=== PATIENT | male | born 1965 | race Caucasian/White ===

== ENCOUNTER 2018-07-04 12:25 | Inpatient (IN) | payer MEDICAID, OTHER ==
[~2018-07-04] VITALS: Ht 193 cm; Wt 76.7 kg
[2018-07-04] MEDS ORDERED: DIVA-78 PO (14:13)
[2018-07-04] MEDS ORDERED: ALBU8HFA IH (14:13)
[2018-07-04] MEDS ORDERED: PRAZ2 PO (14:13)
[2018-07-04] MEDS ORDERED: QUET50TA PO (14:13)
[2018-07-04] MEDS ORDERED: OLAN10TA6 PO (14:13)
[2018-07-04 14:36] LABS: AMPHET/METH SCREEN,URINE NEGATIVE (NEGATIVE); BARBITURATE SCREEN, URINE NEGATIVE (NEGATIVE); BENZODIAZEPINES SCREEN,URINE NEGATIVE (NEGATIVE); CANNABINOID SCREEN,URINE NEGATIVE (NEGATIVE); COCAINE SCREEN,URINE NEGATIVE (NEGATIVE); METHADONE SCREEN, URINE NEGATIVE (NEGATIVE); OPIATE SCREEN,URINE NEGATIVE (NEGATIVE)
[2018-07-04 14:39] LABS: PHENCYCLIDINE SCREEN,URINE NEGATIVE (NEGATIVE)
[2018-07-04 14:47] LABS: BASOPHILS % (AUTO) 0.3 % (0.0-2.0); EOSINOPHILS % (AUTO) 5.7 % (1.0-6.0); HEMATOCRIT 38.2 % (41-53); HEMOGLOBIN 12.6 g/dL (13.5-17.5); LYMPHOCYTES # (AUTO) 2.9 K/uL (1.0-4.8); LYMPHOCYTES % (AUTO) 43.8 % (22.0-44.0); MEAN CORPUSCULAR HEMOGLOBIN 31.2 pg (26.0-34.0); MEAN CORPUSCULAR HGB CONC 32.9 G/dL (31.0-37.0); MEAN CORPUSCULAR VOLUME 95 fL (80-100); MONOCYTES # (AUTO) 0.6 K/uL (0.1-1.0); MONOCYTES % (AUTO) 9.1 % (2.0-9.0); NEUTROPHILS # (AUTO) 2.7 K/uL (1.8-7.7); NEUTROPHILS % (AUTO) 41.1 % (40.0-70.0); PLATELET COUNT (AUTO) 370 K/uL (150-450); RED BLOOD CELL COUNT(AUTO) 4.02 MIL/uL (4.50-5.90); RED CELL DISTRIBUTION WIDTH 14.5 % (11.5-14.5)
[2018-07-04 14:55] LABS: ANION GAP 5 mmol/L (8-16); CALCIUM, TOTAL 8.8 mg/dL (8.8-10.5); CARBON DIOXIDE 28 mmol/L (22-29); CHLORIDE 104 mmol/L (98-107); CREATININE 0.61 mg/dL (0.60-1.30); GLOMERULAR FILTR. RATE CALC > 60 mL/min (>60); GLUCOSE,RANDOM 92 mg/dL (70-110); POTASSIUM 4.3 mmol/L (3.5-5.1); SODIUM SERUM 137 mmol/L (136-145); UREA NITROGEN, BLOOD 13 mg/dL (7-18)
[2018-07-04 15:02] LABS: ALANINE AMINOTRANSFERASE 25 U/L (12-78); ALBUMIN 2.8 g/dL (3.4-5.0); ALKALINE PHOSPHATASE 84 U/L (46-116); ASPARTATE AMINOTRANSFERASE 18 U/L (15-37); BILIRUBIN,TOTAL 0.3 mg/dL (0.1-1.0); TOTAL PROTEIN, SERUM 6.1 g/dL (6.4-8.2)
[2018-07-04] MEDS ORDERED: QUET300T2 PO (16:30)
[2018-07-04] MEDS ORDERED: QUEtiapine FUMARATE 100 MG TABLET PO ONE (16:30)
[2018-07-04] MEDS ORDERED: ZOLPIDEM TARTRATE 10 MG TABLET PO PRN (16:45)
[2018-07-04 17:55] LABS: CHOL/HDL RATIO 3.6 (4.2-7.3); CHOLESTEROL 150 mg/dL (131-200); HDL CHOLESTEROL 42 mg/dL (40-60); LDL CHOL (CALC.) 91 mg/dL (0-130); TRIGLYCERIDES 83 mg/dL (15-150)
[2018-07-04] MEDS ORDERED: ALBUTEROL SULFATE HFA 90 MCG/PUFF 8 GM INHALER IH PRN (21:00)
[2018-07-04] MEDS: IBUPROFEN 600 MG TABLET PO PRN (22:01)
[2018-07-04 22:03] VITALS: BP 122/86
[2018-07-05 02:20] VITALS: BP 102/76
[2018-07-05 08:50] VITALS: BP 105/77
[2018-07-05] MEDS: LORazepam 2 MG TABLET PO PRN (08:53)
[2018-07-05] MEDS: HALOPERIDOL 5 MG TABLET PO PRN (08:53)
[2018-07-05] MEDS: DIVALPROEX SODIUM 500 MG DR TABLET PO SCH ×2 (08:53→17:02)
[2018-07-05] MEDS: IBUPROFEN 600 MG TABLET PO PRN (08:53)
[2018-07-05] MEDS ORDERED: PETROLATUM,WHITE 71 GM JELLY TP PRN (10:45)
[2018-07-05] MEDS ORDERED: ONDANSETRON HCL 4 MG TABLET PO PRN (10:45)
[2018-07-05] MEDS ORDERED: MAG HYDROX/AL HYDROX/SIMETH ES 30 ML SUSPENSION UDCUP PO PRN (10:45)
[2018-07-05] MEDS ORDERED: CloNIDine HCL 0.1 MG TABLET PO PRN (10:45)
[2018-07-05] MEDS ORDERED: MAGNESIUM HYDROXIDE SUSPENSION 30 ML UDCUP PO PRN (10:45)
[2018-07-05] MEDS ORDERED: ACETAMINOPHEN 325 MG TABLET PO PRN (10:45)
[2018-07-05] MEDS ORDERED: BACITRACIN 28.4 GM OINTMENT TP PRN (10:45)
[2018-07-05] MEDS ORDERED: BENZOCAINE/MENTHOL LOZENGE MM PRN (10:45)
[2018-07-05] MEDS ORDERED: LOPERAMIDE HCL 2 MG CAPSULE PO PRN (10:45)
[2018-07-05] MEDS: NICOTINE 21 MG/24 HOUR PATCH TD SCH (12:19)
[2018-07-05 17:00] VITALS: BP 123/85
[2018-07-05] MEDS: QUEtiapine FUMARATE 300 MG TABLET PO SCH (20:50)
[2018-07-05] MEDS: PRAZOSIN HCL 2 MG CAPSULE PO SCH (20:51)
[2018-07-06 04:17] VITALS: BP 122/74
[2018-07-06 08:20] VITALS: BP 111/71
[2018-07-06] MEDS: DIVALPROEX SODIUM 500 MG DR TABLET PO SCH ×2 (08:23→16:34)
[2018-07-06] MEDS: LORazepam 2 MG TABLET PO PRN (08:23)
[2018-07-06] MEDS: HALOPERIDOL 5 MG TABLET PO PRN (08:23)
[2018-07-06] MEDS: IBUPROFEN 600 MG TABLET PO PRN (08:23)
[2018-07-06] MEDS: NICOTINE 21 MG/24 HOUR PATCH TD SCH (08:25)
[2018-07-06 16:19] VITALS: BP 109/68
[2018-07-06] MEDS: QUEtiapine FUMARATE 300 MG TABLET PO SCH (20:34)
[2018-07-06] MEDS: PRAZOSIN HCL 2 MG CAPSULE PO SCH (20:34)
[2018-07-07 02:33] VITALS: BP 127/76
[2018-07-07] MEDS: IBUPROFEN 600 MG TABLET PO PRN ×2 (05:27→16:06)
[2018-07-07] MEDS: DIVALPROEX SODIUM 500 MG DR TABLET PO SCH ×2 (09:10→16:06)
[2018-07-07] MEDS: NICOTINE 21 MG/24 HOUR PATCH TD SCH (09:12)
[2018-07-07 10:21] VITALS: BP 101/70
[2018-07-07] MEDS: LORazepam 2 MG TABLET PO PRN (11:51)
[2018-07-07] MEDS: HALOPERIDOL 5 MG TABLET PO PRN (11:51)
[2018-07-07 16:07] VITALS: BP 112/80
[2018-07-07] MEDS: PRAZOSIN HCL 2 MG CAPSULE PO SCH (21:10)
[2018-07-07] MEDS: QUEtiapine FUMARATE 300 MG TABLET PO SCH (21:10)
[2018-07-08 06:51] LABS: HEMOGLOBIN 14.2 g/dL (13.5-17.5); MEAN CORPUSCULAR HGB CONC 33.9 G/dL (31.0-37.0); MEAN CORPUSCULAR VOLUME 94 fL (80-100); PLATELET COUNT (AUTO) 295 K/uL (150-450); RED BLOOD CELL COUNT(AUTO) 4.45 MIL/uL (4.50-5.90); RED CELL DISTRIBUTION WIDTH 14.1 % (11.5-14.5)
[2018-07-08 07:04] LABS: ANION GAP 7 mmol/L (8-16); CALCIUM, TOTAL 9.3 mg/dL (8.8-10.5); CARBON DIOXIDE 28 mmol/L (22-29); CHLORIDE 104 mmol/L (98-107); CREATININE 0.65 mg/dL (0.60-1.30); GLOMERULAR FILTR. RATE CALC > 60 mL/min (>60); GLUCOSE,RANDOM 84 mg/dL (70-110); PHOSPHORUS 4.1 mg/dL (2.5-4.9); POTASSIUM 4.7 mmol/L (3.5-5.1); SODIUM SERUM 139 mmol/L (136-145); UREA NITROGEN, BLOOD 16 mg/dL (7-18)
[2018-07-08 08:55] VITALS: BP 115/79
[2018-07-08] MEDS: IBUPROFEN 600 MG TABLET PO PRN (09:00)
[2018-07-08] MEDS: HALOPERIDOL 5 MG TABLET PO PRN (09:00)
[2018-07-08] MEDS: LORazepam 2 MG TABLET PO PRN (09:00)
[2018-07-08] MEDS: DIVALPROEX SODIUM 500 MG DR TABLET PO SCH ×2 (09:00→17:36)
[2018-07-08] MEDS: NICOTINE 21 MG/24 HOUR PATCH TD SCH (09:01)
[2018-07-08] MEDS: MULTIVITAMINS WITH MINERALS, THERAPEUTIC TABLET PO SCH (09:01)
[2018-07-08 09:53] LABS: BAND NEUTROPHILS % (MANUAL) 1 % (0-5); BASOPHILS % (MANUAL) 1 % (0-2); EOSINOPHILS % (MANUAL) 2 % (1-6); LYMPHOCYTES % (MANUAL) 48 % (22-44); MONOCYTES % (MANUAL) 9 % (2-9); SEGMENTED NEUTROPHILS % 39 % (40-70)
[2018-07-08 18:57] VITALS: BP 110/75
[2018-07-08] MEDS: PRAZOSIN HCL 2 MG CAPSULE PO SCH (20:51)
[2018-07-08] MEDS: QUEtiapine FUMARATE 300 MG TABLET PO SCH (20:51)
[2018-07-09 04:09] VITALS: BP 99/63
[2018-07-09 08:15] VITALS: BP 112/83
[2018-07-09] MEDS: MULTIVITAMINS WITH MINERALS, THERAPEUTIC TABLET PO SCH (08:26)
[2018-07-09] MEDS: DIVALPROEX SODIUM 500 MG DR TABLET PO SCH ×2 (08:26→16:19)
[2018-07-09] MEDS: NICOTINE 21 MG/24 HOUR PATCH TD SCH (08:29)
[2018-07-09 16:17] VITALS: BP 120/70
[2018-07-09] MEDS: IBUPROFEN 600 MG TABLET PO PRN (16:18)
[2018-07-09] MEDS: PRAZOSIN HCL 2 MG CAPSULE PO SCH (21:01)
[2018-07-09] MEDS: QUEtiapine FUMARATE 300 MG TABLET PO SCH (21:01)
[2018-07-10] MEDS: MULTIVITAMINS WITH MINERALS, THERAPEUTIC TABLET PO SCH (08:25)
[2018-07-10] MEDS: DIVALPROEX SODIUM 500 MG DR TABLET PO SCH (08:25)
[2018-07-10 08:27] VITALS: BP 102/67
[2018-07-10] MEDS: IBUPROFEN 600 MG TABLET PO PRN (08:27)
[2018-07-10] MEDS: NICOTINE 21 MG/24 HOUR PATCH TD SCH (08:29)
[2018-07-10] MEDS ORDERED: MULT-1239 PO (11:01)
== END 2018-07-10 15:18 | disposition home or self-care (01) | DRG 750 ==
LOC: EMS 12:28 → 3EI 18:39
PROVIDERS: ADMIT Psychiatry & Neurology Child & Adolescent Psychiatry; ATTEND Psychiatry & Neurology Child & Adolescent Psychiatry
DX: F25.0 Schizoaffective disorder, bipolar type (principal); E44.1 Mild protein-calorie malnutrition; S22.41XA Multiple fractures of ribs, right side, initial encounter for closed fracture; J44.9 Chronic obstructive pulmonary disease, unspecified; K21.9 Gastro-esophageal reflux disease without esophagitis; Y04.0XXA Assault by unarmed brawl or fight, initial encounter; F41.9 Anxiety disorder, unspecified; Z72.0 Tobacco use; Z90.49 Acquired absence of other specified parts of digestive tract; Z68.20 Body mass index [BMI] 20.0-20.9, adult; Y93.89 Activity, other specified; Y92.89 Other specified places as the place of occurrence of the external cause; Y99.8 Other external cause status; Z71.6 Tobacco abuse counseling
CPT/HCPCS: 71101; 83735; 84100; 85007; 87081; G0480